=== PATIENT | male | born 1980 | race American Indian/Alaskan Native ===

== ENCOUNTER 2021-05-27 11:41 | Emergency (ER) | payer SELFPAY ==
[2021-05-27 13:07] VITALS: BP 132/88
[2021-05-27] MEDS ORDERED: LIDOCAINE-MPF (1%) 10 MG/1 ML VIAL 5 ML INFILTRATI ONE (13:39)
--- NOTE | 2021-05-27 13:42 | Emergency Department Report ---
ED Male HPI - General Chief complaint: Urogenital-Male Stated complaint: PENIAL DISCHARGE Time Seen by Provider: 05/27/21 13:16 Source: patient Mode of arrival: Ambulatory Limitations: No Limitations - History of Present Illness Initial comments: 40-year-old -[place] male with no past medical history presents to the emergency room reporting he has penile discharge for 2 days. Patient states he had had unprotected intercourse. He denies any dysuria denies any testicular pain or swelling. Denies any past medical history does not take any meds on a daily basis and has no known drug allergies. MD Complaint: penile discharge Onset/Timin -: days(s) Location: penis Radiation: none Severity: mild Severity scale (0 -10): 0 new sexual partner - Related Data Sexually active: Yes Previous Rx's Medication Instructions Recorded Last Taken Type Acetaminophen/Codeine [Tylenol #3] 1 tab PO Q6H PRN #20 tab 12/11/14 Unknown Rx Ibuprofen [Motrin 600 MG tab] 600 mg PO Q8H PRN #50 tablet 12/11/14 Unknown Rx Doxycycline Hyclate [Doxycycline 100 mg PO Q12HR 10 Days #20 tab 05/27/21 Unknown Rx Hyclate TAB] metroNIDAZOLE [Flagyl TAB] 2,000 mg PO ONCE #4 tab 05/27/21 Unknown Rx Allergies Allergy/AdvReac Type Severity Reaction Status Date / Time No Known Allergies Allergy Verified 05/27/21 13:06 ED Review of Systems ROS: Stated complaint: PENIAL DISCHARGE Other details as noted in HPI Comment: All other systems reviewed and negative ED Past Medical Hx - Past Medical History Previous Medical History?: No - Social History Smoking Status: Current Every Day Smoker Substance Use Type: None - Medications Home Medications: Home Medications Medication Instructions Recorded Confirmed Last Taken Type Acetaminophen/Codeine [Tylenol #3] 1 tab PO Q6H PRN #20 tab 12/11/14 Unknown Rx Ibuprofen [Motrin 600 MG tab] 600 mg PO Q8H PRN #50 tablet 12/11/14 Unknown Rx Doxycycline Hyclate [Doxycycline 100 mg PO Q12HR 10 Days #20 tab 05/27/21 Unknown Rx Hyclate TAB] metroNIDAZOLE [Flagyl TAB] 2,000 mg PO ONCE #4 tab 05/27/21 Unknown Rx ED Physical Exam - General Limitations: No Limitations General appearance: alert, in no apparent distress - Head Head exam: Present: atraumatic, normocephalic - Eye Eye exam: Present: normal appearance - ENT ENT exam: Present: normal external ear exam - Neck Neck exam: Present: full ROM - Respiratory Respiratory exam: Absent: respiratory distress, accessory muscle use - Cardiovascular Cardiovascular Exam: Present: regular rate - Extremities Exam Extremities exam: Present: normal inspection, full ROM - Back Exam Back exam: Present: normal inspection, full ROM - Neurological Exam Neurological exam: Present: alert, oriented X3, normal gait - Psychiatric Psychiatric exam: Present: normal affect, normal mood - Skin Skin exam: Present: warm, dry, intact, normal color. Absent: rash ED Course Vital Signs 05/27/21 13:05 Temperature 98.5 F Pulse Rate 67 Respiratory 16 Rate Blood Pressure 132/88 O2 Sat by Pulse 99 Oximetry ED Medical Decision Making - Medical Decision Making 40-year-old -[place] male with no past medical history presents to the emergency room reporting he has penile discharge for 2 days. Patient states he had had unprotected intercourse. He denies any dysuria denies any testicular pain or swelling. Denies any past medical history does not take any meds on a daily basis and has no known drug allergies. Patient will be treated with Rocephin 1 g IM and prescription for doxycycline and a referral to the health department for full STD evaluation. Critical care attestation.: If time is entered above; I have spent that time in minutes in the direct care of this critically ill patient, excluding procedure time. ED Disposition Clinical Impression: Concern about STD in male without diagnosis Disposition: 01 HOME / SELF CARE / HOMELESS Is pt being admited?: No Does the pt Need Aspirin: No Condition: Stable Instructions: Safe Sex, Gonorrhea, Chlamydia, Male Additional Instructions: Recommend to complete antibiotics as prescribed. Follow-up at the health department for full STD evaluation. Refrain from intercourse for 2 weeks so med ication can work. Be sure to use condoms. Prescriptions: Doxycycline Hyclate [Doxycycline Hyclate TAB] 100 mg PO Q12HR 10 Days #20 tab metroNIDAZOLE [Flagyl TAB] 2,000 mg PO ONCE #4 tab Referrals: PRIMARY CARE, [Primary Care Provider] - 3-5 Days [facility] [Outside] - 3-5 Days Time of Disposition: 13:46
== END 2021-05-27 14:48 | disposition home or self-care (01) ==
LOC: ED 11:41
DX: Z20.2 Contact with and (suspected) exposure to infections with a predominantly sexual mode of transmission (principal)
CPT/HCPCS: 96372; 99282; J0696; J3490